=== PATIENT | female | born 1955 | race Caucasian/White ===

== ENCOUNTER → 2024-07-09 12:23 | Outpatient (REF) | payer MEDICARE, BC, SELFPAY | LOC: HWWDC 12:23 | PROVIDERS: ATTENDING PHYSICIAN Advanced Practice Midwife; FAMILY PHYSICIAN Family Medicine | DX: Z12.31 Encounter for screening mammogram for malignant neoplasm of breast (principal) | CPT/HCPCS: 77063; 77067 ==

== ENCOUNTER → 2024-07-21 09:59 | Outpatient (REF) | payer MEDICARE, BC, SELFPAY | LOC: HWRAD 09:59 | PROVIDERS: ATTENDING PHYSICIAN Advanced Practice Midwife; FAMILY PHYSICIAN Family Medicine | DX: N95.0 Postmenopausal bleeding (principal) | CPT/HCPCS: 76830; 76856 ==

== ENCOUNTER → 2024-09-09 13:33 | Outpatient (REF) | payer MEDICARE, BC, SELFPAY | LOC: RAD 13:33 | PROVIDERS: ATTENDING PHYSICIAN Physician Assistant Surgical; FAMILY PHYSICIAN Family Medicine | DX: C54.1 Malignant neoplasm of endometrium (principal); L90.0 Lichen sclerosus et atrophicus | CPT/HCPCS: 71260; 74177; Q9967 ==

== ENCOUNTER 2024-09-23 06:30 | Day surgery (SDC) | payer MEDICARE, BC, SELFPAY ==
--- NOTE | 2024-09-22 06:49 | W.CON.GYNONC ---
Chief Complaint
-
endometrial ca
History of Present Illness
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
she�has�been�having�spotting�for�maybe�9�months�and�originally�thought�it�was�from�her�vulva�she�has�a�hx�of�Lichen�sclerosis( biopsy�dx�in�2023)�and�was�seen�by�Dr�Santizo�and�given�a�steroid�cream�she�did�see�improvement�but�continued�to�have
spotting�several�times�a�week�and�was�seen�again�which�is�when�a�pelvic�u/s�was�ordered�and�her�endometrial�lining�was�9�mm.�Dr
Defour�did�the�endometrial�biopsy�the�end�of�Feb.�She�is�still�having�spotting�but�only�sees�it�2�to�3�days/week.�Menopause�was 2000�and�she�did�have�post�menopausal�bleeding�2007,�had�a�d&c�and�benign�polyp�was�removed�at�the�same�time�No�bleeding
again�until�9�months�ago. PMH type�2�DM���last�hemoglobin�A1C�was�6.2�in�01/2024 hypertension glaucoma high�cholesterol Surgical�hx D�&�C� laparoscopic�gall�bladder��1997 colonoscopy��due�2026
Allergies No�Known�Drug�Allergies Medications [facility]�Date Qty Rfls Instructions amlodipine�10�mg�tablet 09/01/2024 0 1�p.o.�q.�day escitalopram�20�mg�tablet 09/01/2024 0 1�p.o.�q.�day latanoprost�0.005�%�eye�drops 09/01/2024 0
both�eyes�1�p.o.�q.�day bed�time losartan�50�mg�tablet 09/01/2024 0 1�p.o.�q.�day Mounjaro�5�mg/0.5�mL�subcutaneous�pen injector 09/01/2024 0 bi�weekly
Social�History Former�Smoker.�Year�Quit�2024. Social�use�of�alcohol. Patient�has�not�had�any�occupational�exposure. Marital�Status:�Patient�is� Gynecological�History
Age�at�Menarche�13�years.�Age�at�menopause:�45�years.�Patient�reports�2�pregnancies.�Her�age�at�first�full�term��was�29 years.�SAVD�x2 Family�Medical�History Brother:�bladder�Cancer
mother:�hysterectomy�cancer,�heart�disease,�hypertension,kidney�issues,�diabetes
Medical History
Allergies
Allergies reflect when allergies were last updated in [facility].
No Known Drug Allergies Allergy (Verified 09/18/24 15:57)
NONE
Physical Exam
Physical Exam
Pelvic�Examination:�External��right�side�red�and�white�patches,white�patches�bilateral�at�introitus,�urethra,�anus.�Vagina:�Normal
mucosa.�Cervix:�normal�appearance,�no�discharge.�Uterus:�normal�size.�Adnexa:�No�pelvic�mass.�RVE:�no�masses�or�nodularity Well�developed,�well�nourished�patient. No�cervical�lymphadenopathy. No�respiratory�distress. Regular�rate.�Regular�rhythm.
Right�Breast:�No�masses�or�dimpling. Left�Breast:�No�masses�or�dimpling.�No�nipple�discharge. Abdomen�is�soft.�Non�tender�to�palpation.�Non�distended. No�edema. Normal�range�of�mo
Respiratory: Clear and Non Labored Respirations
Cardiac: S1/S2
Results
-
[facility]
[address] [place] [id number]
[phone]
Patient Name: ROOSEVELT PINA
: 1955
Unit Number: [id number]
Age/Sex: 69/F
Patient
Location: [facility]
Order Provider: Layne Obrien PA-C
Exam Service Date: 09/09/24

Diagnostic Imaging Report
SignedOrder #:[id number]
Exams: CT Chest/abd/pel W Iv Cont
CPT: 62930, 59951
EXAMINATION: CT of the chest, abdomen and pelvis with intravenous contrast.
INDICATION: Endometrial carcinoma.
TECHNIQUE: Contiguous helical acquisition from the apices of the lungs through the pubic symphysis following the intravenous administration of 80 mL of Omnipaque-350. Delayed phase images were obtained of the lower abdomen and pelvis. Oral contrast
was administered. Axial reconstructions and sagittal, coronal, and sagittal oblique reformats provided. Automated dose reduction technique was utilized for this exam.
COMPARISON: No prior studies available for comparison.
FINDINGS:
Vascular: The thoracoabdominal aorta is of normal caliber, without evidence of aortic aneurysm or dissection. Major aortic branches are patent.
The IVC is of normal caliber.
Thyroid: No significant enlargement, and no significant nodules appreciated.
Supraclavicular region: No pathologic lymphadenopathy appreciated.
Axillary region: No pathologic axillary lymphadenopathy is appreciated on either side.
Mediastinum: No pathologic mediastinal lymphadenopathy. No significant pericardial effusion. There is no significant coronary arterial calcification.
Lungs: Lung nodule is seen within the left lower lobe, best seen on series 07/19/2028, measuring 5 mm in diameter. Small amount of groundglass opacity is seen adjacent to the solid component.
Groundglass nodule within the left upper lobe on image 13 measures 5 mm in diameter.
Right middle lobe nodule on image 29 measures 2 mm in diameter.
No additional lung nodules are appreciated.
No evidence of lobar pneumonia, pleural effusion, or pneumothorax.
Airways: The trachea and major bronchi are of normal caliber. No large endotracheal or endobronchial lesions are appreciated.
Bones: No focal aggressive osseous lesions are seen within the chest. Mild degenerative change is seen within the thoracic spine.
Abdomen:
Peritoneum: No free air is seen within the peritoneal cavity.
Retroperitoneum: No pathologic lymphadenopathy is seen within the retroperitoneum.
Vessels: The abdominal aorta is of normal caliber. The IVC is within normal limits.
Liver: No focal liver masses appreciated. Attenuation of the liver is within normal limits, and the hepatic contour is smooth.
Bile Ducts: No significant biliary ductal dilation.
Gallbladder: Gallbladder has been removed.
Spleen: Within normal limits.
Pancreas: No pancreatic mass or adjacent inflammatory change.
Adrenals: No adrenal mass appreciated.
Kidneys/Ureters: No nephrolithiasis or hydronephrosis on either side. No aggressive renal mass appreciated. The ureters are nondilated .
Bowel: No intestinal dilation or significant bowel wall thickening. No significant mesenteric fat stranding.
Appendix: The appendix is of normal appearance.
Pelvis: No free fluid is seen within the pelvis. No pathologic pelvic lymphadenopathy.
Reproductive Organs: Thickening of the endometrial canal measuring up to 2.3 cm in thickness.
Bladder: No significant bladder wall thickening or adjacent fat stranding.
Abdominal Wall: No significant abdominal wall hernia formation. No abdominal wall mass appreciated.
Bones: No focal aggressive osseous lesions are seen. Mild degenerative change within the lumbar spine.
IMPRESSION:
1. Multiple lung nodules as detailed above, measuring up to 5 mm in diameter. Nodules may be benign or malignant, follow-up chest CT is suggested in 6-12 months as per Fleischner Society recommendations.
2. Thickening of the endometrial canal, likely corresponding to the patient's known endometrial carcinoma.
Electronically signed by Roberto Do MD, 09/09/2024 5:53 PM
[facility] Dose Report: Up-to-date CT equipment and radiation dose reduction techniques were employed. CTDIvol: 10.9 - 15.5 mGy. DLP: 1141 mGy-cm.
Dictated By: Roberto Do MD
Dictated Date & Time: 09/09/24 8007
Impression / Plan
-
post�menopausal�bleeding�and�endometrial�ca�on�bx 1.�reviewed�biopsy�report�and�causes�of�endometrial�cancer� 2.�discussed�surgical�treatment�for�endometrial�cancer�is�needed�to�create�a�plan�if�additional�treatment�will�be�needed.�Explained
to�patient�and��the�procedure�of�a�Robotic�assisted�laparoscopic�total�hysterectomy�with�bilateral�salping�oophorectomy and�sentinel�lymph�node�biopsy.�Also�recommend�biopsy�of�the�right�vulvar�lesion.
�Explained�that�ther�are�risks�to�surgery�and�that she�would�need�to�see�her�primary�for�medical�clearance.�
Reviewed�consent�for�surgery�with�patient�and��and�all�questions were�answered�She�signed�the�consent. reviewed�post�op�pain�management�and�activities.�Will�see�her�2�wks�after�surgery.
3.�labs�and�CT�scan�of�chest�abdomen�and�pelvis�were�ordered.
[2024-09-23] VITALS (8 sets, daily range): BP systolic 98–134; BP diastolic 55–86; BMI 37.2
[2024-09-23] MEDS: TYLENOL 1000 MG PO (13:18)
[2024-09-23] MEDS: NEURONTIN 300 MG PO (13:18)
[2024-09-23] MEDS: CELEBREX 200 MG PO (13:18)
[2024-09-23 13:33] LABS: Glucose - Point of Care 92 mg/dl (70-99)
[2024-09-23] MEDS: HEPARIN 5000 UNITS SC (14:15)
[2024-09-23] MEDS: NORMOSOL-R/PLASMALYTE-A 1000 IV (14:17)
[2024-09-23 17:19] LABS: Glucose - Point of Care 118 mg/dl (70-99)
== END 2024-09-23 19:34 | disposition home or self-care (01) ==
LOC: SDS 06:30
PROVIDERS: ATTENDING PHYSICIAN Obstetrics & Gynecology Gynecologic Oncology
DX: C54.1 Malignant neoplasm of endometrium (principal); D27.0 Benign neoplasm of right ovary; N83.202 Unspecified ovarian cyst, left side; N83.201 Unspecified ovarian cyst, right side; N73.6 Female pelvic peritoneal adhesions (postinfective)
CPT/HCPCS: 58571; 88305; 88307; 88309; 82962; 88112; 88342; 88360; 93005

== ENCOUNTER → 2024-11-07 14:02 | Outpatient (REF) | payer MEDICARE, BC, SELFPAY | LOC: HWRAD 14:02 | PROVIDERS: ATTENDING PHYSICIAN Obstetrics & Gynecology Gynecologic Oncology; FAMILY PHYSICIAN Family Medicine; REFERRING PHYSICIAN Otolaryngology | DX: L90.0 Lichen sclerosus et atrophicus (principal); C54.1 Malignant neoplasm of endometrium; R91.8 Other nonspecific abnormal finding of lung field; E04.1 Nontoxic single thyroid nodule | CPT/HCPCS: 76536 ==

== ENCOUNTER → 2024-12-17 09:35 | Outpatient (REF) | payer MEDICARE, BC, SELFPAY ==
[2024-12-17 09:50] VITALS: BP 116/82; BP_SYST 68
== END ==
LOC: RADI 09:35
PROVIDERS: ATTENDING PHYSICIAN Otolaryngology; FAMILY PHYSICIAN Family Medicine
DX: C73 Malignant neoplasm of thyroid gland (principal)
CPT/HCPCS: 10005; 88173

== ENCOUNTER 2025-01-07 06:17 | Day surgery (SDC) | payer MEDICARE, BC, SELFPAY ==
[2025-01-07] VITALS (11 sets, daily range): BP systolic 102–136; BP diastolic 49–87; BMI 37.2
[2025-01-07 11:51] LABS: Glucose - Point of Care 146 mg/dl (70-99)
[2025-01-07] MEDS: NORMOSOL-R/PLASMALYTE-A 1000 IV (12:00)
[2025-01-07] MEDS: TYLENOL 1000 MG PO (12:41)
[2025-01-07 16:16] LABS: Glucose - Point of Care 158 mg/dl (70-99)
[2025-01-07] MEDS: SUBLIMAZE 50 MCG IV (16:28)
== END 2025-01-07 18:40 | disposition home or self-care (01) ==
LOC: SDS 06:17
PROVIDERS: ATTENDING PHYSICIAN Otolaryngology
DX: C73 Malignant neoplasm of thyroid gland (principal); E04.1 Nontoxic single thyroid nodule; E04.2 Nontoxic multinodular goiter
CPT/HCPCS: 60220; 82962; 88307; C1776